=== PATIENT | male | born 1995 | race Caucasian/White ===

== ENCOUNTER 2018-01-10 14:30 | Emergency (ER) | payer BC, OTHER ==
[~2018-01-10] VITALS: Ht 175.3 cm; Wt 55.6 kg
[2018-01-10 14:34] VITALS: Ht 175.3 cm; Wt 55.6 kg
[2018-01-10] MEDS ORDERED: ONDANSETRON INJ 2 MG/ML 2 ML VIAL IV PRN ×3 (15:00→17:15)
[2018-01-10] MEDS ORDERED: LACTATED RINGER'S 1000ML 1,000 ML IV SCH ×2 (15:00→17:01)
--- NOTE | 2018-01-10 15:02 | History and Physical ---
History & Physical Date Jan 10, 2018. History of Present Illness The patient is a 22 year old male with complaints of RUQ and epigastric pain with nausea. Began last night. He is a college student at [employer] and was seen in the ER and workup showed gallstones and a leukocytosis. LFT's essentially normal. It was recommended he see a surgeon. His father brought him here b/c of persistent pain. Additional History Hepatic Disease: No Endocrine Disorder: No Kidney Disease: No Hypertension: No Heart Disease: No Bleeding Tendencies: No Infectious Diseases: No Allergies Coded Allergies: No Known Allergies (Unverified , 07/28/10) Home Medications Miscellaneous Medications None (Patient States No Home Meds) Physical Examination Skin: warm/dry, no rash Eyes: EOMI, sclerae normal Head: normocephalic, atraumatic Neck: supple, trachea midline Respiratory/Chest: no respiratory distress Abdomen / GI: normal bowel sounds, + pertinent finding (+epigastric and RUQ ttp. ) Neurologic/Psych: alert, oriented x 3 ASA Classification: ASA Class I Plan of Treatment discussed options. discussed lap nicole/risks ( bleeding/infection/dvt/pe/leaks/ injury to other organs etc...) questions answered. in light of his symptoms, US findings , and leukocytosis, will plan lap nicole today. pt/parents agreeable.
[2018-01-10 15:26] VITALS: O2SAT 99
[2018-01-10] MEDS ORDERED: BUPIVACAINE 0.5 % 5 MG/1 ML MPF 30ML VIAL ONE (15:35)
[2018-01-10] MEDS ORDERED: EpINEphrine HCL INJ 1 MG/ML 1ML SYRINGE ONE (15:49)
[2018-01-10] MEDS ORDERED: MIDAZOLAM HCL 1 MG/ML 2ML VIAL ONE (15:50)
[2018-01-10] MEDS ORDERED: FENTANYL CITRATE INJ 50 MCG/1 ML 2 ML VIAL ONE ×2 (15:50→16:21)
[2018-01-10] MEDS ORDERED: HYDR-5688 PO (15:58)
[2018-01-10] MEDS ORDERED: ATROPINE SULFATE 0.1 MG/ML 5ML SYR IV PRN (16:00)
[2018-01-10] MEDS ORDERED: CEFOXITIN SOD 2 GM VIAL IV ONE (16:00)
[2018-01-10] MEDS ORDERED: HYDROmorphone INJ 0.5 MG/0.5 ML SYR IV PRN (16:00)
[2018-01-10] MEDS ORDERED: EpHEDrine SULFATE INJ 50 MG/ML AMP IV PRN (16:00)
--- NOTE | 2018-01-10 16:00 | Discharge Instructions ---
Discharge Instructions Date of Service Jan 10, 2018. Admission Reason for Admission: Gallbladder Attack Discharge Discharge Diagnosis / Problem: laparoscopic cholecystectomy Discharge Goals Goal(s): Decrease discomfort Activity Recommendations Activity Limitations: as noted below Lifting Limitations: no more than 10 pounds Shower/Bathe: no limitations Driving or Machine Use: resume 3 days after discharge . Instructions / Follow-Up Instructions / Follow-Up Dr. Christina in 2 weeks, call [phone] to schedule Current Hospital Diet Patient's current hospital diet: Discharge Diet Recommended Diet: Regular Diet Pending Studies Studies pending at discharge: yes List of pending studies: pathology Medical Emergencies . Who to Call and When: Medical Emergencies: If at any time you feel your situation is an emergency, please call 911 immediately. . Non-Emergent Contact Non-Emergency issues call your: Surgeon Call Non-Emergent contact if: you have a fever, temperature is above 101.5, your pain is not controlled, wound has increased redness, you have any medication questions . "Provider Documentation" section prepared by Leo Trevino. . [place] Drug Monitoring Program Search Results: no issues identified
[2018-01-10] MEDS ORDERED: HYDROmorphone INJ 2 MG/ML SYR/VIAL ONE (16:31)
[2018-01-10] MEDS ORDERED: RANITIDINE HCL 25 MG/ML INJ ONE (16:35)
[2018-01-10] MEDS ORDERED: METOCLOPRAMIDE HCL INJ 5 MG/ML 2 ML VIAL ONE (16:35)
[2018-01-10] MEDS ORDERED: DEXAMETHASONE SOD INJ 4 MG/ML VIAL ONE (16:35)
[2018-01-10] MEDS ORDERED: ONDANSETRON INJ 2 MG/ML 2 ML VIAL ONE (16:35)
[2018-01-10] MEDS ORDERED: ROCURONIUM BROMIDE 10 MG/ML 5 ML VIAL IV ONE (16:35)
[2018-01-10] MEDS ORDERED: GLYCOPYRROLATE INJ 0.2 MG/ML VIAL ONE (16:35)
[2018-01-10] MEDS ORDERED: NEOSTIGMINE METHYLSULFATE 5 MG/5 ML SYR ONE (16:35)
[2018-01-10] MEDS ORDERED: PROPOFOL IV EMULSION 10 MG/ML 20 ML VIAL IV ONE (16:35)
[2018-01-10] MEDS ORDERED: KETOROLAC TROMETHAMINE 30 MG/ML VIAL ONE (16:35)
[2018-01-10] MEDS ORDERED: LIDOCAINE HCL 2% 2 ML VIAL (20MG/ML) ONE (16:35)
--- NOTE | 2018-01-10 16:58 | [facility] Post Operative Brief Note ---
Immediate Operative Summary Operative Date Jan 10, 2018. Pre-Operative Diagnosis Gallstones Post-Operative Diagnosis Symptomatic Gallstones, Acute Appendicitis Procedure(s) Performed Laparoscopic Cholecystectomy, Laparoscopic Appendectomy Surgeon Dr. Christina Advertising Strategist Surgeon(s) Rock Herman Estimated Blood Loss 5ml Findings Consistent with Post-Op Diagnosis Specimens a. gallstones and contents b. appendix Anesthesia Type General Complication(s) none
[2018-01-10] MEDS ORDERED: MoRPHine SULFATE 4 MG/ML 1 ML CARP\\VIAL IV PRN (17:15)
[2018-01-10] MEDS ORDERED: HYDROCODONE/ACETAMIN 5/325MG TAB PO PRN (17:15)
--- NOTE | 2018-01-10 17:16 | [facility] Operative Report ---
Operative Report Operative Date Jan 10, 2018. Pre-Operative Diagnosis Gallstones Post-Operative Diagnosis Symptomatic Gallstones, Acute Appendicitis Procedure(s) Performed Laparoscopic Cholecystectomy, Laparoscopic Appendectomy Surgeon Dr. Christina Arch Cushion Press Operator Surgeon(s) Rock Herman Estimated Blood Loss 5ml Specimens a. gallstones and contents b. appendix Drains None Anesthesia Type General Complication(s) none Description of Procedure After informed consent was obtained the patient was taken to the operating room and placed in the supine position. After successful intubation the abdomen was sterilely prepped and draped in usual fashion. A periumbilical incision was made with an 11 blade scalpel and carried down through the soft tissue using electrocautery. The anterior rectus fascia was opened using electrocautery and 2 #0 Vicryl stay sutures were placed. The peritoneum was elevated with hemostats and incised under direct vision using Metzenbaum scissors. A finger sweep was performed and a 12 mm Allan trocar was placed. The abdomen was insufflated to 18 mmHg. A subxiphoid 5 mm port and 2 right upper quadrant 5 mm ports were placed under direct vision. The patient was placed in a reverse Trendelenburg position and slightly air-planed to the left. The gallbladder was grasped and elevated superiorly and laterally. A [place] dissector was used to take down adhesions around the neck of the gallbladder. The cystic duct was identified and skeletonized. It was clipped twice proximally and once distally and transected using a laparoscopic scissor. In similar fashion the cystic artery was identified and skeletonized clipped and divided. The gallbladder was removed from the gallbladder fossa with electrocautery. It was placed into an Endo Catch bag. There did appear to be a small amount of edema in the wall the gallbladder. It was removed intact. Thorough irrigation was performed. At the end of the procedure there was adequate hemostasis and no evidence of any bile leaks. The gallbladder was placed into an Endo Catch bag and removed from the camera port site. I then looked around the remainder of the abdomen. Interestingly the appendix did not appear normal. It appeared thickened and quite stiff. It was red and appeared to be an early acute appendicitis. When I grabbed the appendix with a grasper it was quite stiff especially the distal one half of it. I decided that we should remove this as well. I was able to use a 5 mm camera through the upper midline incision. The right upper quadrant incisions were used to place a grasper and elevate the appendix. I was able to use a ANNE brown cartridge linear stapler to transect the mesentery of the appendix along with the appendix itself at its base with the cecum. It was placed into an Endo Catch bag and removed from the camera port site as well. There was adequate hemostasis. The staple lines were intact. I ran the small bowel backwards from the terminal ileum for several feet. The large and small bowel all appeared normal. Liver spleen stomach and all the other peritoneal surfaces looked normal as well. Final look around the entire abdomen showed no bile leaks and adequate hemostasis. The trochars were all removed. The abdomen was desufflated. The fascia of the camera port was closed using 0 Vicryl in a [id number] fashion. All wounds were irrigated and closed using 4-0 Monocryl. Marcaine was injected around them for postoperative analgesia and skin glue used as a dressing. Patient was awaken extubated and transferred to recovery in stable condition. My physician's delinquent tax collection assistant was present throughout the entire case. He helped with exposure for trocar placement. He helped retract the gallbladder and appendix. He helped run the camera. He helped with wound closure and dressing placement at the end of the case. I attest to the content of the Intraoperative Record and any orders documented therein. Any exceptions are noted below.
[2018-01-10] MEDS ORDERED: MEPERIDINE HCL 25 MG/ML CARP ONE (17:28)
[2018-01-10] MEDS ORDERED: NURSING VERBAL MED ORDER ONE ×2 (17:30→19:00)
[2018-01-10] MEDS: FENTANYL CITRATE INJ 50 MCG/1 ML 2 ML VIAL IV PRN ×4 (17:43→18:07)
--- NOTE | 2018-01-10 18:21 | Anesthesiology Progress Note ---
Anesthesia Post Op Note Date & Time Jan 10, 2018 at 18:21 Vital Signs Pain Intensity: 5 Vital Signs Past 12 Hours Date Time Temp Pulse Resp B/P (MAP) Pulse Ox O2 Delivery O2 Flow Rate FiO2 01/10/18 18:10 36.7 74 14 119/63 94 Room Air 01/10/18 18:00 70 14 122/75 100 Nasal Cannula 2 01/10/18 17:50 60 16 122/77 100 Nasal Cannula 2 01/10/18 17:40 83 16 126/84 100 Nasal Cannula 4 01/10/18 17:30 78 18 128/80 100 Nasal Cannula 4 01/10/18 17:21 36.6 87 16 129/82 100 Nasal Cannula 4 01/10/18 15:26 56 16 124/61 99 Room Air 01/10/18 14:34 36.6 57 18 116/69 99 Room Air Notes Mental Status: alert / awake / arousable, participated in evaluation Pt Amnestic to Procedure: Yes Nausea / Vomiting: adequately controlled Pain: adequately controlled Airway Patency, RR, SpO2: stable & adequate BP & HR: stable & adequate Hydration State: stable & adequate Anesthetic Complications: no major complications apparent
[2018-01-10 18:40] VITALS: BP 114/58; PULSE 94; TEMP 36.7; O2SAT 100
[2018-01-10 19:10] VITALS: BP 120/59; PULSE 79; TEMP 36.9; O2SAT 96
[2018-01-10] MEDS ORDERED: NORCO 5/325MG HOME PACK PO SCH (19:15)
== END 2018-01-10 19:31 | disposition home or self-care (01) ==
LOC: C.EDB 14:31
DX: K82.4 Cholesterolosis of gallbladder (principal); K35.80 Unspecified acute appendicitis; Z98.890 Other specified postprocedural states